=== PATIENT | female | born 1990 | race Caucasian/White ===

== ENCOUNTER 2018-03-11 15:53 | Emergency (ER) | END 2018-03-11 17:42 | disposition home or self-care (01) ==

== ENCOUNTER 2018-12-18 08:51 | Emergency (ER) | payer MEDICAID, OTHER ==
[~2018-12-18] VITALS: Ht 162.6 cm; Wt 91.6 kg
[~2018-12-18 08:51] MED LIST: ACET500C5 PO; ALBUTEROL; CEPH-443 PO; CYCL10TA7 PO; IBUP-1542 PO; IBUP800T48 PO; PREN-39
[2018-12-18 08:56] VITALS: BP 156/72; PULSE 80; RESP 18; Ht 162.6 cm; Wt 91.6 kg
[2018-12-18] MEDS ORDERED: IBUPROFEN 800 MG TAB PO ONE (09:30)
[2018-12-18] MEDS ORDERED: IBUP-1542 PO (10:08)
--- NOTE | 2018-12-18 12:15 | ERD ---
ER Documentation Chief Complaint Chief Complaint R knee pain r/t fall from playing soccer, no deformity noted HPI Patient is a 28-year-old female with asthma who presents with right knee pain. The patient was playing soccer yesterday and fell down. Another player fell on top of her and she has right-sided knee pain. She tried Advil. Patient does not member the name of the primary doctor. ROS All systems reviewed and are negative except as per history of present illness. Medications Home Meds Active Scripts Ibuprofen* (Motrin*) 600 Mg Tab, 600 MG PO Q6H PRN for PAIN AND OR ELEVATED TEMP, #30 TAB Prov:ALLY CONTRERAS MD 12/18/18 Cyclobenzaprine Hcl* (Cyclobenzaprine Hcl*) 10 Mg Tablet, 10 MG PO Q8 PRN for PAIN, #20 TAB Prov:CHARLES CONWAY MD 03/11/18 Ibuprofen* (Motrin*) 600 Mg Tab, 600 MG PO Q6, #20 TAB Prov:CHARLES CONWAY MD 03/11/18 Cephalexin* (Keflex*) 500 Mg Capsule, 500 MG PO QID for 5 Days, CAP Prov:CHARLES CONWAY MD 07/08/16 Acetaminophen* (Tylophen*) 500 Mg Capsule, 2 CAP PO Q8H PRN for PAIN AND OR ELEVATED TEMP, #20 CAP Prov:CHARLES CONWAY MD 07/08/16 Cyclobenzaprine Hcl* (Cyclobenzaprine Hcl*) 10 Mg Tablet, 10 MG PO TID, #15 TAB Prov:MIMI ABRAMS NP 03/19/16 Ibuprofen* (Motrin*) 800 Mg Tab, 800 MG PO Q8 PRN for PAIN AND OR ELEVATED TEMP, #30 TAB Prov:MIMI ABRAMS NP 03/19/16 Reported Medications Vits W-Ca,Fe,Fa(<1MG) ( Vitamins) 1 Tab Tablet 01/05/11 [Albuterol] INH No Conflict Check 06/22/10 Allergies Allergies: Coded Allergies: Pork/Porcine Containing Products (Verified Allergy, Intermediate, TOTAL BODY RASH, 01/10/14) PMhx/Soc History of Surgery: No Anesthesia Reaction: No Hx Neurological Disorder: No Hx Respiratory Disorders: Yes (ASTHMA) Hx Cardiac Disorders: No Hx Psychiatric Problems: No Hx Miscellaneous Medical Probl: No Hx Alcohol Use: No Hx Substance Use: No Hx Tobacco Use: No FmHx Family History: No diabetes Physical Exam Vitals Vital Signs Date Temp Pulse Resp B/P (MAP) Pulse Ox O2 O2 Flow FiO2 Time Delivery Rate 12/18/18 97.4 80 18 156/72 100 08:56 (100) Physical Exam Const: No acute distress Head: Atraumatic Eyes: Normal Conjunctiva ENT: Normal External Ears, Nose and Mouth. Neck: Full range of motion. No meningismus. Resp: Clear to auscultation bilaterally Cardio: Regular rate and rhythm, no murmurs Abd: Soft, non tender, non distended. Normal bowel sounds Skin: No petechiae or rashes Back: No midline or flank tenderness Ext: Right knee pain in the joint space with no signs of effusion or obvious deformity Neur: Awake and alert Psych: Normal Mood and Affect Results 24 hrs Current Medications Medications Dose Sig/Luke Start Time Status Last (Trade) Ordered Route PRN Stop Time Admin Dose Reason Admin Ibuprofen 800 mg ONCE ONCE 12/18/18 DC 12/18/18 (Motrin) PO 09:30 09:35 12/18/18 09:34 Procedures/MDM Right knee x-ray negative for fracture or dislocation per radiology. Splint Note Type: Right knee immobilizer Location: Right lower extremity Indication: Possible soft tissue injury Splint Assessment: Neurovascularly intact post splint placement with good fit. Patient is a 28-year-old female presents with right-sided knee pain. X-ray was negative for fracture or dislocation but there is a possibility of a soft tissue injury. The patient will be placed in a knee immobilizer and given crutches. She will need to follow-up with her primary doctor within 1 week. She can use ibuprofen as needed for pain. 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 ALLY CONTRERAS MD Dec 18, 2018 12:15
== END 2018-12-18 10:32 | disposition home or self-care (01) ==
LOC: E/R 08:51
DX: S89.91XA Unspecified injury of right lower leg, initial encounter (principal); J45.909 Unspecified asthma, uncomplicated; W18.39XA Other fall on same level, initial encounter; Y92.9 Unspecified place or not applicable
CPT/HCPCS: 29505; 73562; Z7502; Z7610

== ENCOUNTER 2019-04-02 06:53 | Emergency (ER) | payer SELFPAY ==
[~2019-04-02] VITALS: Ht 154.9 cm; Wt 93.6 kg
[~2019-04-02 06:53] MED LIST changes: +ERYT1OIN6 LEFT EYE
[2019-04-02 06:54] VITALS: BP 117/77; PULSE 99; RESP 20; Ht 154.9 cm; Wt 93.6 kg
--- NOTE | 2019-04-02 08:21 | ERD ---
ER Documentation Chief Complaint Chief Complaint left eye pain/swollen since yesterday HPI 28-year-old female presenting with swelling to the left eye. She noticed this yesterday and is primarily to her eyelid. She denies any contacts or glasses use. Patient is rising but no other medications in her eye. She denies any goopy crusting eye discharge. Denies allergies to medications. Medical history is asthma. Surgical history denies. Social history denies ROS All systems reviewed and are negative except as per history of present illness. Medications Home Meds Active Scripts Erythromycin Base (Erythromycin) 1 Gm Oint...g., 1 APPLIC LEFT EYE QID for 7 Days Prov:MARLENY BIRD PA-C 04/02/19 Ibuprofen* (Motrin*) 600 Mg Tab, 600 MG PO Q6H PRN for PAIN AND OR ELEVATED TEMP, #30 TAB Prov:ALLY CONTRERAS MD 12/18/18 Cyclobenzaprine Hcl* (Cyclobenzaprine Hcl*) 10 Mg Tablet, 10 MG PO Q8 PRN for PAIN, #20 TAB Prov:CHARLES CONWAY MD 03/11/18 Ibuprofen* (Motrin*) 600 Mg Tab, 600 MG PO Q6, #20 TAB Prov:CHARLES CONWAY MD 03/11/18 Cephalexin* (Keflex*) 500 Mg Capsule, 500 MG PO QID for 5 Days, CAP Prov:CHARLES CONWAY MD 07/08/16 Acetaminophen* (Tylophen*) 500 Mg Capsule, 2 CAP PO Q8H PRN for PAIN AND OR ELEVATED TEMP, #20 CAP Prov:CHARLES CONWAY MD 07/08/16 Cyclobenzaprine Hcl* (Cyclobenzaprine Hcl*) 10 Mg Tablet, 10 MG PO TID, #15 TAB Prov:MIMI ABRAMS NP 03/19/16 Ibuprofen* (Motrin*) 800 Mg Tab, 800 MG PO Q8 PRN for PAIN AND OR ELEVATED TEMP, #30 TAB Prov:MIMI ABRAMS NP 03/19/16 Reported Medications Vits W-Ca,Fe,Fa(<1MG) ( Vitamins) 1 Tab Tablet 01/05/11 [Albuterol] INH No Conflict Check 06/22/10 Allergies Allergies: Coded Allergies: Pork/Porcine Containing Products (Verified Allergy, Intermediate, TOTAL BODY RASH, 01/10/14) PMhx/Soc History of Surgery: No Anesthesia Reaction: No Hx Neurological Disorder: No Hx Respiratory Disorders: Yes (ASTHMA) Hx Cardiac Disorders: No Hx Psychiatric Problems: No Hx Miscellaneous Medical Probl: No Hx Alcohol Use: No Hx Substance Use: No Hx Tobacco Use: No Smoking Status: Never smoker FmHx Family History: No diabetes, No coronary disease, No other Physical Exam Vitals Vital Signs Date Temp Pulse Resp B/P (MAP) Pulse Ox O2 O2 Flow FiO2 Time Delivery Rate 04/02/19 98.9 99 20 117/77 97 06:54 (90) Physical Exam GENERAL: The patient is well-appearing, well-nourished, in no acute distress HEENT: Atraumatic. Conjunctivae are pink. Pupils equal, round, and reactive to light. There is no scleral icterus. Tympanic membranes clear bilaterally. Oropharynx clear. Mild swelling noted to the left upper eyelid with no surrounding erythema. Mild tenderness to palpation. No injection of the sclera and no crusting or discharge noted around the eye NECK: C-spine is soft and supple. There is no meningismus. There is no cervical lymphadenopathy. CHEST: Clear to auscultation bilaterally. There are no rales, wheezes or rhonchi. HEART: Regular rate and rhythm. No murmurs, clicks, rubs or gallops. Procedures/MDM MDM: 28-year-old female presenting with swelling to the left eyelid. Patient has findings consistent with blepharitis and is recommended to use supportive medications. I have low suspicion for bacterial conjunctivitis or periorbital or orbital cellulitis. Patient is discharged with supportive medications and told to follow-up with primary care within 1 to 2 days for close evaluation. All questions answered at discharge Departure Diagnosis: Primary Impression: Blepharitis Condition: Stable Patient Instructions: Blepharitis Referrals: [facility] YOU HAVE RECEIVED A MEDICAL SCREENING EXAM AND THE RESULTS INDICATE THAT YOU DO NOT HAVE A CONDITION THAT REQUIRES URGENT TREATMENT IN THE EMERGENCY DEPARTMENT. FURTHER EVALUATION AND TREATMENT OF YOUR CONDITION CAN WAIT UNTIL YOU ARE SEEN IN YOUR DOCTORS OFFICE WITHIN THE NEXT 1-2 DAYS. IT IS YOUR RESPONSIBILITY TO MAKE AN APPOINTMENT FOR FOLOW-UP CARE. IF YOU HAVE A PRIMARY DOCTOR --you should call your primary doctor and schedule an appointment IF YOU DO NOT HAVE A PRIMARY DOCTOR YOU CAN CALL OUR PHYSICIAN REFERRAL HOTLINE AT IF YOU CAN NOT AFFORD TO SEE A PHYSICIAN YOU CAN CHOSE FROM THE FOLLOWING [facility] [address] [facility] [address] [facility] [address] [facility] [address] [facility] [address] [facility] [facility] [address] Additional Instructions: FOLLOW UP WITH YOUR PRIMARY CARE PHYSICIAN TOMORROW.Return to this facility if you are not improving as expected. MARLENY BIRD PA-C Apr 02, 2019 08:21
== END 2019-04-02 07:47 | disposition home or self-care (01) ==
LOC: FTE 06:53
DX: H01.004 Unspecified blepharitis left upper eyelid (principal); J45.909 Unspecified asthma, uncomplicated
CPT/HCPCS: 99283